=== PATIENT | male | born 1960 ===

== ENCOUNTER 2017-03-02 12:16 | Emergency (ER) | payer OTHER ==
[2017-03-02] MEDS ORDERED: Lidocaine 5% Patch TD STA (13:09)
--- NOTE | 2017-03-02 13:51 | C.PDOC ---
History Of Present Illness 57 year old male presents to the ED with complaints of lower back pain, exacerbated by sitting and standing, beginning two days ago. 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 He took ibuprofen 800 mg once at home with no relief. He denies fever, chills, dysuria, abdominal or groin pain, or history of kidney stones. Time Seen by Provider: 03/02/17 13:06 Chief Complaint (Nursing): Back Pain History Per: Patient History/Exam Limitations: no limitations Onset/Duration Of Symptoms: Days (2 days ) Current Symptoms Are (Timing): Still Present Quality Of Discomfort: "Pain" Previous Symptoms: None Associated Symptoms: None Exacerbating Factor(s): Sitting, Standing Recent travel outside of the [place]: No Past Medical History Reviewed: Historical Data, Nursing Documentation, Vital Signs Vital Signs: Last Vital Signs Temp 97.5 F L 03/02/17 12:55 Pulse 64 03/02/17 12:55 Resp 20 03/02/17 12:55 BP 109/72 03/02/17 12:55 Pulse Ox 97 03/02/17 13:57 - Medical History PMH: HTN, Hypothyroidism Surgical History: Tonsillectomy - [facility] Procedures IMMOBILIZ/WOUND ATTN NEC (07/12/14) Family History: States: Unknown Family Hx - Social History Hx Alcohol Use: No Hx Substance Use: No Review Of Systems Constitutional: Negative for: Fever, Chills Cardiovascular: Negative for: Chest Pain, Palpitations Respiratory: Negative for: Shortness of Breath Gastrointestinal: Negative for: Nausea, Vomiting, Abdominal Pain Genitourinary: Negative for: Dysuria Musculoskeletal: Positive for: Back Pain (lower back pain) Neurological: Negative for: Weakness, Numbness Physical Exam - Physical Exam Appears: Non-toxic, No Acute Distress Skin: Warm, Dry Head: Atraumatic Eye(s): bilateral: Normal Inspection, PERRL, EOMI Oral Mucosa: Moist Neck: Supple Chest: Symmetrical, No Deformity Cardiovascular: Rhythm Regular Respiratory: Normal Breath Sounds, No Wheezing Gastrointestinal/Abdominal: Soft, No Tenderness, No Distention, No Guarding, No Rebound Back: Vertebral Tenderness (mid-lumbar tenderness ), No Paraspinal Tenderness Extremity: Normal ROM, No Tenderness Neurological/Psych: Oriented x3 Gait: Steady ED Course And Treatment O2 Sat by Pulse Oximetry: 97 (room air ) Disposition Counseled Patient/Family Regarding: Diagnosis, Need For Followup, Rx Given - Disposition Disposition: HOME/ ROUTINE Disposition Time: 14:05 Condition: STABLE Prescriptions: Cyclobenzaprine [Cyclobenzaprine HCl] 10 mg PO TID #9 tab Ibuprofen [Motrin] 600 mg PO TID #9 tab Instructions: Back Pain (GEN) Forms: General Discharge Instructions, Work Excuse - POA Present On Arrival: None - Clinical Impression Clinical Impression: Low back pain - Scribe Statement The provider has reviewed the documentation as recorded by the Scribtommie Huertas All medical record entries made by the Indiraibtommie were at my direction and personally dictated by me. I have reviewed the chart and agree that the record accurately reflects my personal performance of the history, physical exam, medical decision making, and the department course for this patient. I have also personally directed, reviewed, and agree with the discharge instructions and disposition.
[2017-03-02 14:11] VITALS: BP 110/69; PULSE 63; RESP 17; TEMP 98; O2SAT 95
== END 2017-03-02 14:18 | disposition home or self-care (01) ==
LOC: C.ER 12:16
DX: M54.5 Low back pain (principal)